=== PATIENT | male | born 1960 | race Caucasian/White ===

== ENCOUNTER → 2019-11-13 | Outpatient (CLI) | payer OTHER ==
[~2019-11-13] MED LIST: ADVIL100 M2 PO; ASPIRIN EC81 M1 PO; CELEXA 20 MG TA20 M1 PO; CLONAZEPAM 1 MG1 M1 PO; LIPITOR20 MG PO; MELADOX3 MG PO
== END ==
LOC: SJCVCIMAG 07:38
PROVIDERS: ATTEND Internal Medicine Cardiovascular Disease
DX: I08.1 Rheumatic disorders of both mitral and tricuspid valves (principal); I48.91 Unspecified atrial fibrillation; J45.909 Unspecified asthma, uncomplicated; Z82.49 Family history of ischemic heart disease and other diseases of the circulatory system

== ENCOUNTER → 2019-11-16 | Outpatient (CLI) | payer OTHER | LOC: CAT 07:56 | PROVIDERS: ATTEND Internal Medicine Cardiovascular Disease | DX: Z13.6 Encounter for screening for cardiovascular disorders (principal); I25.10 Atherosclerotic heart disease of native coronary artery without angina pectoris; E78.00 Pure hypercholesterolemia, unspecified ==